=== PATIENT | male | born 1990 | race American Indian/Alaskan Native ===

== ENCOUNTER 2022-08-01 10:38 | Emergency (ER) | payer OTHER ==
[~2022-08-01] VITALS: Ht 165.1 cm; Wt 68.0 kg
[2022-08-01] MEDS ORDERED: ADVIL200 MG PO (10:53)
== END 2022-08-01 11:35 | disposition home or self-care (01) ==
LOC: ED 10:38
DX: S83.92XA Sprain of unspecified site of left knee, initial encounter (principal); S00.83XA Contusion of other part of head, initial encounter; V89.9XXA Person injured in unspecified vehicle accident, initial encounter; Z88.0 Allergy status to penicillin; Z79.899 Other long term (current) drug therapy
CPT/HCPCS: 73560; 99283-25